=== PATIENT | female | born 1975 | race Caucasian/White ===

== ENCOUNTER → 2016-03-03 | Outpatient (CLI) | payer OTHER ==
--- NOTE | 2016-03-03 12:03 | US ---
Complete Abdominal Ultrasound History: Intermittent left upper quadrant pain. Comparison: Abdominal ultrasound from May 09, 2015. Findings: The liver has normal echotexture and contour. There is no intrahepatic biliary dilatation. The common bile duct measures 2 mm and is normal. A 7-mm echogenic nonmobile structure adjacent to th e free margin of the gallbladder, most likely representing a polyp, is unchanged in size since the co mparison. Minimal gallbladder sludge is present. There is no gallbladder wall thickening or perichole cystic fluid. The spleen is normal, measuring 8.1 x 4.1 x 8.4 cm. The kidneys have normal echotexture and contour without hydronephrosis or contour deforming masses. The right kidney measures 10.9 cm an d the left kidney measures 9.5 cm. The visible aorta is normal caliber. The visible portions of the p ancreas are normal with partial obscuration of the pancreatic head and tail by overlying bowel gas. T he visible portions of the IVC are normal. Impression: 1. No visible etiology for the patient's pain. 2. Stable 7-mm gallbladder polyp. Annual ultrasound follow up is recommended for a polyp of this size .
== END ==
LOC: CIMAGING 08:43
PROVIDERS: ATTEND Internal Medicine
DX: R10.12 Left upper quadrant pain (principal); K82.4 Cholesterolosis of gallbladder
CPT/HCPCS: 76700-PO

== ENCOUNTER 2016-04-27 17:34 | Emergency (ER) | payer OTHER ==
[2016-04-27 18:10] VITALS: BP 148/93; PULSE 76; RESP 16; TEMP 98.7; O2SAT 97
--- NOTE | 2016-04-27 18:31 | UCPHY ---
H & P Patient Type: New Chief Complaint Nursing Narrative: c/o sinus congestion, runny nose, cough and sore throat x 2 weeks HPI/ROS: CHIEF COMPLAINT: Congestion HISTORY OF PRESENT ILLNESS: The patient is a 40 year old female presenting with 3 weeks of congestion. The patient states her nasal drainage has remained constant since onset. It originated as yellowish color, but over the past week turned greenish. She has developed a nonproductive cough, no shortness of breath or chest pain. She has been unable to sleep secondary to cough and drainage in the back of her throat. She's continued to take Aleve which has helped slightly. She also tried [facility] cold care. REVIEW OF SYSTEMS: A ten point review of systems was performed and is negative with the exception of the items mentioned in the HPI. Source: Patient - Personal History LMP (Females 10-55): Now Tetanus Vaccine Date: 2012 - Medical/Surgical History Hx Asthma: No Hx Chronic Respiratory Disease: No Hx Diabetes: No Hx Cardiac Disease: No Hx Renal Disease: No Hx Cirrhosis: No Hx Alcoholism: No Hx HIV/AIDS: No Hx Splenectomy or Spleen Trauma: No Other PMH: denies - Family History Significant Family History: No pertinent family hx - Social History Smoking Status: Never smoked Additional Social History: . - Physical Exam Exam: VITAL SIGNS: see nurse's notes. BP 148/93. GENERAL: Well-developed, well-nourished, in no acute distress. HEENT: Atraumatic Eyes: PERRL, EOMI, no conjunctival injection. Ears: TM clear bilaterally. Nose: No discharge. Mouth: moist mucous membranes. Pharynx: Sinus drainage, no erythema, no exudates, no swelling, no abscess. Uvula is midline. NECK: Anterior cervical lymphadenopathy. LUNGS: Clear to auscultation bilaterally, no wheezes, rhonchi or rales. CARDIAC: Regular rate and rhythm, no rubs, murmurs or gallops. ABDOMEN: Soft, nontender, bowel sounds normal. BACK: No CVA tenderness. EXTREMITIES: Normal, no edema, FROM. NEURO: Alert and oriented, grossly nonfocal. SKIN: Warm and dry, no rash. PSYCHIATRIC: Normal mentation, no agitation. Constitutional: Initial Vital Signs Temperature (C) 37.1 C 04/27/16 18:07 Heart Rate 76 04/27/16 18:07 Respiratory Rate 16 04/27/16 18:07 Blood Pressure 148/93 H 04/27/16 18:07 O2 Sat (%) 97 04/27/16 18:07 O2 Delivery Mode Room Air Allergies/Adverse Reactions: No Known Allergies Allergy (Verified 07/13/15 14:24) Home Medications: Medication Instructions Recorded Amoxicillin/Clavulanate Pot 875 mg PO BID #14 tab 04/27/16 [Augmentin 875 MG TAB (*)] Hydrocodone/APAP 5/325 [[place] 1 - 2 tab PO Q4 PRN #10 tab 04/27/16 5/325 (RX)] Medical Decision Making ED Course/Re-evaluation: Signs of symptoms of sinusitis with worsening over time and continued colored drainage. I feel that antibiotics are appropriate and am prescribing Augmentin. We discussed OTC measures for symptoms. Based upon my history and physical I do not suspect intracranial extension of sinusitis, strep pharyngitis, bronchitis, pneumonia, or influenza. Departure - Departure Disposition: Home, Routine, Self-Care Clinical Impression: Sinusitis Qualifiers: Sinusitis location: unspecified location Chronicity: acute Recurrence: non- recurrent Qualified Code(s): J01.90 - Acute sinusitis, unspecified Condition: Good Instructions: Sinusitis (ED) Additional Instructions: I suspect you have a sinusitis. Mainstay of therapy will be to drink plenty of fluids, control your symptoms with antibiotics and nbve-dve-evgnvji medications, and get plenty of rest. Take full course of antibiotics as prescribed. If you have a sore throat, take Tylenol, or ibuprofen. Throat lozenges, throat sprays, or salt water gargles may also be helpful. Try taking over the counter decongestants such as Mucinex to help with congestion. Take the Vicodin tonight to help you sleep. If you have a fever, use Tylenol or ibuprofen. You may take both at the same time if needed. Adult Pain & Fever Control: We recommend Acetaminophen (Tylenol) and Ibuprofen (Motrin, Advil) for pain and fever control. When fever is high or pain severe, both drugs can be used at the same time, but at different intervals. Please note the time differences. Your dose is: Acetaminophen 650-1000mg every 4 to 6 hours Ibuprofen 600mg every 8 hours with food. Return to the Urgent Care or seek care urgently if your symptoms are worsening despite the above treatment, if you develop shortness of breath, if you're unable to drink fluids secondary to throat pain or other issues, to have vomiting, diarrhea, or other concerns. Referrals: Jesi Lin MD [Primary Care Provider] - As per Instructions Prescriptions: Amoxicillin/Clavulanate Pot [Augmentin 875 MG TAB (*)] 875 mg PO BID #14 tab Hydrocodone/APAP 5/325 [[place] 5/325 (RX)] 1 - 2 tab PO Q4 PRN #10 tab PRN Reason: pain - PQRS PQRS Measurement: Does not apply. Report Scribed for: Eli Grewal Report Scribed by: Gail Martinez Date of Report: 04/27/16 Time of Report: 18:46 Physician Review and Approval Statement: 04/27/16 18:31 Portions of this note were transcribed by the medical practice assistant. I, Dr. Eli Grewal, personally performed the history, physical exam, and medical decision- making; and confirmed the accuracy of the information in the transcribed note.
== END 2016-04-27 19:00 | disposition home or self-care (01) ==
LOC: CED 17:34
DX: J01.90 Acute sinusitis, unspecified (principal)
CPT/HCPCS: G0463-PO

== ENCOUNTER → 2016-06-09 | Outpatient (CLI) | payer OTHER | LOC: BMCIMAGING 16:35 | PROVIDERS: ATTEND Internal Medicine | DX: R07.89 Other chest pain (principal); Z82.49 Family history of ischemic heart disease and other diseases of the circulatory system ==

== ENCOUNTER → 2017-02-11 | Outpatient (CLI) | payer OTHER | LOC: BMCIMAGING 14:15 | PROVIDERS: ATTEND Internal Medicine | DX: N13.30 Unspecified hydronephrosis (principal) ==

== ENCOUNTER 2017-03-08 13:07 | Emergency (ER) | payer OTHER ==
--- NOTE | 2017-03-08 13:19 | CPEKG ---
Heart Rate: 91 RR Interval: 659 P-R Interval: 164 QRSD Interval: 100 QT Interval: 348 QTC Interval: 429 P [place]: 60 QRS [place]: 22 T Wave [place]: 41 EKG Severity - NORMAL ECG - EKG Impression: SINUS RHYTHM Electronically Signed By: Luigi Becerril 13-Mar-2017 10:25:24
[2017-03-08 13:27] VITALS: TEMP 98.8
[2017-03-08] MEDS ORDERED: ASPIRIN 81 MG CHEWABLE TAB PO ONE (13:39)
[2017-03-08 14:14] LABS: PLATELET COUNT 350 10^3/uL (150-400)
--- NOTE | 2017-03-08 14:27 | EDPHY ---
H & P Stated Complaint: CHEST PAIN STARTED TUESDAY, TODAY AT 1039 WITH CP RADIATION TO L SHOULDER Time Seen by Provider: 03/08/17 13:22 HPI/ROS: CHIEF COMPLAINT: Chest pain and heart racing History by patient HISTORY OF PRESENT ILLNESS: 41-year-old woman who is otherwise healthy presents complaining of a pinching feeling in her chest, feeling dizzy like she is going to pass out and getting sweaty. 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 She said she felt flushed. She felt that her heart was racing and she noticed that her heart rate was up. Patient states that she previously had an episode of palpitations in the past that was felt to be related to alcohol. Patient states 3 nights ago she drank more alcohol than usual and the next day felt her heart racing her pulse was in the 120s to 130s. It was regular the whole time. At that time she was not having any chest pain , shortness of breath or pinching in her chest. Today she felt a racing along with these other symptoms. She denies any shortness of breath. She does have a sharp pain in her upper back which is worse when she takes a deep breath in. She describes the pinching in her chest as sharp, intermittent and the localized to a small, finger tip sized area of her left lower sternal border. She denies any leg pain or swelling. Her father has a history of an unprovoked DVT leading to a stroke through patent foramen ovale. Both of her grandfathers of sudden cardiac in their mid 60s. There is no other sudden cardiac in her family. Patient is not on control pills. She has had no recent surgeries or immobilizations. Patient does not smoke. Her cholesterol was borderline in the past. There is no hypertension or diabetes or obesity. She is premenopausal. Patient had an episode 6 months to a year ago where she was noted to have skipped beats and a physical exam at that time were Holter monitor which was unremarkable. REVIEW OF SYSTEMS: As in HPI, and all other systems reviewed and are negative Source: Patient - Personal History Tetanus Vaccine Date: 2012 - Medical/Surgical History Hx Asthma: No Hx Chronic Respiratory Disease: No Hx Diabetes: No Hx Cardiac Disease: No Hx Renal Disease: No Hx Cirrhosis: No Hx Alcoholism: No Hx HIV/AIDS: No Hx Splenectomy or Spleen Trauma: No Other PMH: C/S, URETER STENT SURG - Social History Smoking Status: Never smoked - Physical Exam Exam: General Appearance: Alert, comfortable appearing, speaking full sentences. Head: normocephalic, atraumatic Eyes: Pupils equal and round, reactive to light, no pallor or injection. Mouth: Mucous membranes moist. Respiratory: Normal, effort, lungs are clear to auscultation. No wheezes, rales or rhonchi. Cardiovascular: Regular rate and rhythm. S1, S2, no murmurs, gallops or rubs appreciated, chest wall nontender Gastrointestinal: Abdomen is soft and nontender, no masses, bowel sounds normal. Back: No CVA tenderness, no bony tenderness Neurological: Awake, alert and oriented x 3, no pronator drift, normal gait, no pronator drift Skin: Warm and dry, no rashes. Musculoskeletal: No deformities or tenderness. Extremities: full range of motion, no edema, DP2+ bilat Psychiatric: Patient has normal affect, there is no agitation. Constitutional: Initial Vital Signs Temperature (C) 37.1 C 03/08/17 13:25 Heart Rate 97 03/08/17 13:25 Respiratory Rate 18 03/08/17 13:25 Blood Pressure 146/92 H 03/08/17 13:25 O2 Sat (%) 98 03/08/17 13:25 O2 Delivery Mode Room Air Allergies/Adverse Reactions: nitrofurantoin [From Macrobid] Allergy (Verified 03/08/17 13:23) Home Medications: Medication Instructions Recorded NK [No Known Home Meds] 03/08/17 Medical Decision Making - Diagnostics Imaging Results: Imaging Impressions Chest X-Ray 03/08/17 13:34 Impression: No acute abnormality, or substantial change from 06/09/2016. ED Course/Re-evaluation: 41-year-old woman presents with palpitations and chest pain. Patient was placed on a secured entrance monitor which initially showed sinus tachycardia and then sinus rhythm in the 90s without ectopy. ECG showed normal sinus rhythm at a rate of 91 with normal axis, normal intervals and no ST segment abnormalities, no evidence of delta wave or Brugada syndrome or acute ischemia. Chest x-ray was unremarkable. Patient's D-dimer was negative ruling out pulmonary embolism and patient with a low pretest probability. Labs are unremarkable. TSH was within normal limits. First troponin was negative. Patient has low heart score and minimal risk factors for coronary disease and I think this is unlikely the cause of her symptoms. She felt better after some fluids. We discussed the possibility that this could be a panic attack given the tachycardia and anxiety associated symptoms. I am recommending close follow-up with primary care physician and consideration of repeat cardiac monitoring such as event monitoring to make sure she is not having episodes of SVT. Patient was given reassurance that there is no evidence of any emergent or life-threatening cause of her symptoms at this time. Patient is discharged home in stable condition. - Data Points Laboratory Results: Laboratory Results 03/08/17 14:05 03/08/17 14:05 03/08/17 03/08/17 03/08/17 14:05 14:05 14:05 WBC RBC Hgb Hct MCV MCH MCHC RDW Plt Count MPV Neut % (Auto) Lymph % (Auto) [place] % (Auto) Eos % (Auto) Baso % (Auto) Nucleat RBC Rel Count Absolute Neuts (auto) Absolute Lymphs (auto) Absolute Monos (auto) Absolute Eos (auto) Absolute Basos (auto) Absolute Nucleated RBC Immature Gran % Immature Gran # D-Dimer < 0.27 ug/mLFEU ug/mLFEU (0.00-0.50) Sodium 142 mEq/L mEq/L (135-145) Potassium 4.1 mEq/L mEq/L (3.5-5.2) Chloride 102 mEq/L mEq/L (97-110) Carbon Dioxide 23 mEq/l mEq/l (22-31) Anion Gap 17 mEq/L H mEq/L (8-16) BUN 15 mg/dL mg/dL (7-23) Creatinine 0.6 mg/dL mg/dL (0.6-1.0) Estimated GFR > 60 Glucose 89 mg/dL mg/dL (70-100) Calcium 9.6 mg/dL mg/dL (8.5-10.4) Magnesium 1.9 mg/dL mg/dL (1.6-2.3) Total Bilirubin 0.4 mg/dL mg/dL (0.1-1.4) AST 19 IU/L IU/L (14-46) ALT 23 IU/L IU/L (9-52) Alkaline Phosphatase 50 IU/L IU/L (38-126) Troponin I 0.016 ng/mL ng/mL (0.000-0.034) Total Protein 7.9 g/dL g/dL (6.3-8.2) Albumin 4.3 g/dL g/dL (3.5-5.0) TSH 1.290 uIU/mL uIU/mL (0.465-4.680) 03/08/17 14:05 WBC 9.22 10^3/uL 10^3/uL (3.80-9.50) RBC 4.42 10^6/uL 10^6/uL (4.18-5.33) Hgb 13.3 g/dL g/dL (12.6-16.3) Hct 39.0 % % (38.0-47.0) MCV 88.2 fL fL (81.5-99.8) MCH 30.1 pg pg (27.9-34.1) MCHC 34.1 g/dL g/dL (32.4-36.7) RDW 12.6 % % (11.5-15.2) Plt Count 350 10^3/uL 10^3/uL (150-400) MPV 8.6 fL L fL (8.7-11.7) Neut % (Auto) 69.0 % % (39.3-74.2) Lymph % (Auto) 20.2 % % (15.0-45.0) [place] % (Auto) 9.3 % % (4.5-13.0) Eos % (Auto) 0.3 % L % (0.6-7.6) Baso % (Auto) 0.9 % % (0.3-1.7) Nucleat RBC Rel Count 0.0 % % (0.0-0.2) Absolute Neuts (auto) 6.36 10^3/uL 10^3/uL (1.70-6.50) Absolute Lymphs (auto) 1.86 10^3/uL 10^3/uL (1.00-3.00) Absolute Monos (auto) 0.86 10^3/uL H 10^3/uL (0.30-0.80) Absolute Eos (auto) 0.03 10^3/uL 10^3/uL (0.03-0.40) Absolute Basos (auto) 0.08 10^3/uL 10^3/uL (0.02-0.10) Absolute Nucleated RBC 0.00 10^3/uL 10^3/uL (0-0.01) Immature Gran % 0.3 % % (0.0-1.1) Immature Gran # 0.03 10^3/uL 10^3/uL (0.00-0.10) D-Dimer Sodium Potassium Chloride Carbon Dioxide Anion Gap BUN Creatinine Estimated GFR Glucose Calcium Magnesium Total Bilirubin AST ALT Alkaline Phosphatase Troponin I Total Protein Albumin TSH Medications Given: Discontinued Medications Aspirin (Aspirin) 324 mg PO EDNOW ONE Stop: 03/08/17 13:40 Last Admin: 03/08/17 13:52 Dose: 324 mg Departure - Departure Disposition: Home, Routine, Self-Care Clinical Impression: Palpitations Chest pain Qualifiers: Chest pain type: other chest pain Qualified Code(s): R07.89 - Other chest pain ; R07.8 - Other chest pain Condition: Good Instructions: Heart Palpitations (ED), Noncardiac Chest Pain (ED) Additional Instructions: You were seen by Dr. Raysa Luciano today. Your EKG today was normal. We found no serious cause of your symptoms today. You may try ibuprofen for your chest wall pain. Please follow-up with your primary care physician to discuss need for further cardiac monitoring. Return for any worsening or new concerns. Referrals: Jesi Lin MD [Primary Care Provider] - As per Instructions
[2017-03-08] MEDS ORDERED: NS 1,000 ML IV ONE (14:35)
[2017-03-08 15:56] VITALS: BP 107/70; PULSE 80; RESP 16; O2SAT 96
== END 2017-03-08 15:57 | disposition home or self-care (01) ==
LOC: CED 13:07
DX: R00.2 Palpitations (principal); R07.89 Other chest pain; R42 Dizziness and giddiness
CPT/HCPCS: 71046-PO; 80053-PO; 83735-PO; 84443-PO; 84484-PO; 85025-PO; 85378-PO

== ENCOUNTER → 2017-11-01 | Outpatient (CLI) | payer OTHER | LOC: FIMAGING 12:13 | PROVIDERS: ATTEND Midwife | DX: N60.11 Diffuse cystic mastopathy of right breast (principal) ==